=== PATIENT | female | born 2005 | race Caucasian/White ===

== ENCOUNTER 2025-04-22 20:53 | Emergency (ER) | payer MEDICAID, OTHER ==
[2025-04-22] MEDS ORDERED: Ondansetron 4 MG Tab.DIS PO ONE (20:54)
[2025-04-22] MEDS: Ondansetron 4 MG Tab.DIS PO STA (21:17)
== END 2025-04-22 22:14 | disposition home or self-care (01) ==
LOC: FB.ED 20:53
DX: S09.90XA Unspecified injury of head, initial encounter (principal); S39.012A Strain of muscle, fascia and tendon of lower back, initial encounter; S86.912A Strain of unspecified muscle(s) and tendon(s) at lower leg level, left leg, initial encounter; S16.1XXA Strain of muscle, fascia and tendon at neck level, initial encounter; V49.40XA Driver injured in collision with unspecified motor vehicles in traffic accident, initial encounter
CPT/HCPCS: 70450; 99284; A9270; Q0162